=== PATIENT | male | born 1930 | race Caucasian/White ===

== ENCOUNTER 2017-05-04 21:57 | Inpatient (IN) | payer OTHER, MEDICARE ==
[~2017-05-04] VITALS: Ht 167.6 cm; Wt 52.8 kg
[2017-05-04 23:10] LABS: BASOPHIL % 0.1 % (0-2); PLATELET COUNT 137 x10^3mcL (130-400)
[2017-05-04 23:12] LABS: RED CELL DISTRIBUTION WIDTH 20.5 % (11.5-14.5)
[2017-05-04 23:16] LABS: CALCIUM 7.7 mg/dL (8.5-10.1); CARBON DIOXIDE 23.1 mmol/L (21-32); CHLORIDE SERUM 101 mmol/L (98-107); CREATININE SERUM 0.9 mg/dL (0.7-1.3); GLUCOSE SERUM 167 mg/dL (74-106); POTASSIUM SERUM 4.5 mmol/L (3.5-5.1); SODIUM SERUM 136 mmol/L (136-145)
[2017-05-04 23:20] LABS: ALT/SGPT 11 U/L (16-63); AST/SGOT 78 U/L (15-37); BILIRUBIN TOTAL 0.67 mg/dL (0.20-1.00); HDL CHOLESTEROL 44 mg/dL (40-60); PHOSPHOROUS 2.1 mg/dL (2.5-4.9); URIC ACID 6.8 mg/dL (3.5-7.2)
[2017-05-04 23:22] LABS: TOTAL PROTEIN, SERUM 5.8 g/dL (6.4-8.2)
[2017-05-04 23:25] LABS: CHOLESTEROL 217 mg/dL (<200)
[2017-05-05 00:24] LABS: ALKALINE PHOSPHATASE 1937 U/L (46-116)
[2017-05-05] MEDS ORDERED: ZOF4 PO (00:56)
[2017-05-05 01:36] VITALS: BP 102/62
[2017-05-05 02:15] VITALS: BP 94/64
[2017-05-05 02:36] LABS: MAGNESIUM 2.1 mg/dL (1.8-2.4)
[2017-05-05 02:38] LABS: CHOLESTEROL/HDL RATIO 5.1
[2017-05-05 02:44] LABS: FREE T4 0.91 ng/dL (0.76-1.46); FREE THYROXINE INDEX 1.6 ug/dL (1.4-4.5); T3 TOTAL 0.49 ng/mL; T4(THYROXINE) 4.5 ug/dL (4.7-13.3)
[2017-05-05 05:42] VITALS: BP 92/54
[2017-05-05 08:19] LABS: BASOPHIL % 0 % (0-2); PLATELET COUNT 122 x10^3mcL (130-400); RED CELL DISTRIBUTION WIDTH 20.3 % (11.5-14.5)
[2017-05-05 09:19] VITALS: BP 89/53
[2017-05-05 18:17] VITALS: BP 82/42
[2017-05-05 20:00] VITALS: BP 76/43
[2017-05-06 01:19] VITALS: BP 77/40
[2017-05-06 05:03] VITALS: BP 82/49
[2017-05-06 06:51] LABS: BASOPHIL % 0.3 % (0-2)
[2017-05-06 06:52] LABS: PLATELET COUNT 126 x10^3mcL (130-400); RED CELL DISTRIBUTION WIDTH 20.2 % (11.5-14.5)
[2017-05-06 07:01] LABS: ALT/SGPT 9 U/L (16-63); AST/SGOT 53 U/L (15-37); BILIRUBIN TOTAL 0.4 mg/dL (0.20-1.00); CARBON DIOXIDE 22.5 mmol/L (21-32); CHLORIDE SERUM 102 mmol/L (98-107); CREATININE SERUM 0.9 mg/dL (0.7-1.3); GLUCOSE SERUM 108 mg/dL (74-106); MAGNESIUM 2.1 mg/dL (1.8-2.4); POTASSIUM SERUM 3.8 mmol/L (3.5-5.1); SODIUM SERUM 134 mmol/L (136-145)
[2017-05-06 07:08] LABS: TOTAL PROTEIN, SERUM 4.8 g/dL (6.4-8.2)
[2017-05-06 07:09] LABS: ALBUMIN 1.8 g/dL (3.4-5.0)
[2017-05-06 07:42] LABS: ALKALINE PHOSPHATASE 1390 U/L (46-116)
[2017-05-06] MEDS ORDERED: LIPI10 PO (08:17)
[2017-05-06 08:19] VITALS: BP 82/49
[2017-05-06] MEDS ORDERED: REG5 PO (08:24)
[2017-05-06] MEDS ORDERED: LAC30L PO (08:25)
[2017-05-06] MEDS ORDERED: FINASTERIDE5 M1 PO (08:40)
[2017-05-06 08:57] VITALS: BP 89/53
[2017-05-06 09:33] LABS: rbc morphology (normal/abnorm) ABNORMAL (NORMAL)
== END 2017-05-06 12:47 | disposition hospice, home (50) | DRG 241 ==
LOC: ED 21:57 → DU 05-05 00:48
PROVIDERS: Emergency Medicine; ADMIT Family Medicine
DX: K27.9 Peptic ulcer, site unspecified, unspecified as acute or chronic, without hemorrhage or perforation (principal); N17.0 Acute kidney failure with tubular necrosis; I21.4 Non-ST elevation (NSTEMI) myocardial infarction; E43 Unspecified severe protein-calorie malnutrition; L89.151 Pressure ulcer of sacral region, stage 1; D68.9 Coagulation defect, unspecified; C61 Malignant neoplasm of prostate; D64.9 Anemia, unspecified; M62.50 Muscle wasting and atrophy, not elsewhere classified, unspecified site; I24.8 Other forms of acute ischemic heart disease; E78.5 Hyperlipidemia, unspecified; R73.03 Prediabetes; K22.6 Gastro-esophageal laceration-hemorrhage syndrome; I24.9 Acute ischemic heart disease, unspecified; M16.0 Bilateral primary osteoarthritis of hip; M19.012 Primary osteoarthritis, left shoulder; M19.011 Primary osteoarthritis, right shoulder; N40.0 Benign prostatic hyperplasia without lower urinary tract symptoms; M87.859 Other osteonecrosis, unspecified femur; E83.39 Other disorders of phosphorus metabolism; Z53.29 Procedure and treatment not carried out because of patient's decision for other reasons; M89.8X8 Other specified disorders of bone, other site; Z68.1 Body mass index [BMI] 19.9 or less, adult; Z87.891 Personal history of nicotine dependence; Z90.49 Acquired absence of other specified parts of digestive tract
CPT/HCPCS: 82962; 83880; 84439; 94150; 97110-GP; J2405; J2765; J3490; J7030; Q0092; Q9967